=== PATIENT | female | born 1975 | race Two or more races ===

== ENCOUNTER 2025-03-29 06:02 | Day surgery (SDC) | payer OTHER ==
[2025-03-25 14:24] VITALS: BP 140/99
[2025-03-25 14:25] VITALS: BP 164/100
[~2025-03-29] VITALS: Ht 180.3 cm; Wt 96.2 kg
[~2025-03-29 06:02] MED LIST: CELEBREX100 MG PO; DAFLONEX-XL 11300 MG PO; GRALISE600 MG PO; VALACYCLOVIR1000 MG PO; ZANAFLEX4 MG PO
[2025-03-29] MEDS ORDERED: MAXIMUM D3325 MCG (07:59)
[2025-03-29] MEDS ORDERED: CELECOXIB200 MG (08:00)
[2025-03-29] MEDS ORDERED: ZANAFLEX2 MG (08:00)
[2025-03-29] MEDS ORDERED: GABAPENTIN800 M1 (08:01)
[2025-03-29] MEDS ORDERED: LIDOCAINE HCL 1%/EPINEPHRINE 20ML VIAL IJ ONE (10:30)
[2025-03-29] MEDS ORDERED: BUPIVACAINE HCL 30 ML VIAL IJ ONE (10:30)
[2025-03-29] MEDS ORDERED: CLINDAMYCIN PHOSPHATE 150 MG/ML (600mg) IV ONE (10:30)
[2025-03-29] MEDS ORDERED: NEURONTIN300 MG PO (11:15)
[2025-03-29] MEDS ORDERED: IBU800 MG PO (11:15)
[2025-03-29] MEDS ORDERED: MORPHINE SULFATE 4 MG/ML VIAL IV ONE ×2 (12:05→12:35)
== END 2025-03-29 13:30 | disposition home or self-care (01) ==
LOC: O/R 06:02 → CIR.AMB 06:02 → OB/GYN 06:02 → EDSTATUS 12:30 → OB/GYN 12:30 → CIR.AMB 13:30 → O/R 13:30
PROVIDERS: ATTEND Obstetrics & Gynecology Gynecology
DX: D27.1 Benign neoplasm of left ovary (principal); N83.12 Corpus luteum cyst of left ovary; D28.2 Benign neoplasm of uterine tubes and ligaments; N94.89 Other specified conditions associated with female genital organs and menstrual cycle